=== PATIENT | male | born 1995 | race Two or more races ===

== ENCOUNTER 2017-02-20 10:00 | Emergency (ER) | payer SELFPAY ==
[~2017-02-20] VITALS: Ht 190.5 cm; Wt 115.7 kg
[~2017-02-20 10:00] MED LIST: ALBUTEROL SULF8.5 GM INH; AZITHROMYCIN250 MG ORAL; BENADRYL25 MG ORAL; ERYTHROMYCIN3.5 GM LEFT EYE; FLONASE1 SPRAYS NASAL; MEDROL DOSEPAK4 MG ORAL; NAPROXEN500 M2 ORAL; NKM; PREDNISONE20 MG ORAL; PROAIR HFA8.5 GM INH; PROMETHAZINE-C118 M1 ORAL; ZYRTEC10 MG ORAL
[2017-02-20] MEDS ORDERED: Albuterol ud Inhalation HHN ONE (10:30)
[2017-02-20] MEDS ORDERED: Ipratropium 0.02% Inh Soln 2.5ml UD HHN ONE (10:30)
[2017-02-20] MEDS ORDERED: PredniSONE 20mg tab ORAL ONE (10:30)
[2017-02-20] MEDS ORDERED: ALBUTEROL SULF8.5 GM INH (11:30)
[2017-02-20] MEDS ORDERED: PREDNISONE20 MG ORAL (11:30)
[2017-02-20] MEDS ORDERED: PROMETHAZINE-C118 M1 ORAL (11:30)
[2017-02-20 11:41] VITALS: BP 120/80
--- NOTE | 2017-02-21 13:54 | Emergency Room Report ---
History of Present Illness General Chief Complaint: Flu Like Symptoms Source: Patient Present Illness HPI 21-year-old male presents to ED complaining of cough x10 days. Cough is productive with greenish sputum. Patient notes wheezing. Documents history of asthma. States he did not have an inhaler at this time. Denies any fevers or chills. Denies smoking. Denies recent travel. No other aggravating or relieving factors. Denies any other associated symptoms Allergies: Coded Allergies: No Known Allergies (Unverified , 02/21/14) Patient History Past Medical History: asthma Past Surgical History: none Pertinent Family History: none Social History: Denies: alcohol use, drug use, smoking Immunizations: UTD Reviewed Nursing Documentation: PMH: Agreed, PSxH: Agreed Nursing Documentation-PMH Hx Cardiac Problems: No - seasonal allergies Hx Asthma: Yes Review of Systems All Other Systems: negative except mentioned in HPI Physical Exam Vital Signs Date Time Temp Pulse Resp B/P Pulse Ox O2 Delivery O2 Flow Rate FiO2 02/20/17 10:09 97.2 96 20 136/75 100 Room Air 02/20/17 10:15 96 Sp02 EP Interpretation: reviewed, normal General Appearance: no apparent distress, alert, GCS 15, non-toxic Head: normocephalic Eyes: bilateral eye PERRL, bilateral eye normal inspection ENT: normal ENT inspection Neck: normal inspection Respiratory: chest non-tender, normal breath sounds, speaking full sentences, wheezing Cardiovascular #1: regular rate, rhythm, no edema Gastrointestinal: normal inspection Rectal: deferred Genitourinary: no CVA tenderness Musculoskeletal: normal inspection Neurologic: alert, oriented x3, responsive, motor strength/tone normal, sensory intact, speech normal Psychiatric: normal inspection Skin: normal color, no rash, warm/dry, well hydrated Lymphatic: normal inspection Medical Decision Making Diagnostic Impression: Primary Impression: Bronchitis ER Course Hospital Course 21-year-old male presents to ED complaining of cough, wheezing Differential diagnoses include: URI, bronchitis, asthma/COPD, pneumonia Clinical course Patient placed on stretcher. After initial history and physical I ordered prednisone and nebulizer treatment. Upon reassessment patient states cough and symptoms have improved. Findings consistent with bronchitis. Diagnosis - bronchitis Stable and discharged home with prescriptions for Rx prednisone, cough syrup, albuterol. Instructed to followup with PMD. Return to ED if symptoms recur or worsen Last Vital Signs Date Time Temp Pulse Resp B/P Pulse Ox O2 Delivery O2 Flow Rate FiO2 02/20/17 11:41 97.5 91 16 120/80 96 Room Air 21 Status: improved Disposition: HOME, SELF-CARE Condition: Stable Scripts Codeine/Promethazine Hcl* (PROMETHAZINE-CODEINE SYRUP*) 118 Ml Syrup 5 ML ORAL Q4H Y for For Cough for 7 Days, ML 0 Refills Prov: CRISTY BLACKBURN M.D. 02/20/17 Prednisone* (PREDNISONE*) 20 Mg Tablet 40 MG ORAL DAILY, #10 TAB Prov: CIRSTY BLACKBURN M.D. 02/20/17 Albuterol Sulfate* (ALBUTEROL SULFATE MDI*) 8.5 Gm Hfa.aer.ad 2 PUFF INH Q4H Y for cough/wheezing, #1 EA 0 Refills Prov: CRISTY BLACKBURN M.D. 02/20/17 Referrals: NOT CHOSEN [facility]/,REFERRING (PCP) Patient Instructions: Acute Bronchitis, [id number] CRISTY BLACKBURN M.D. Feb 21, 2017 13:54
== END 2017-02-20 11:43 | disposition home or self-care (01) ==
LOC: EMR 10:40
DX: J45.909 Unspecified asthma, uncomplicated (principal)
CPT/HCPCS: 94640; 94664; 99284

== ENCOUNTER 2018-01-21 01:35 | Emergency (ER) | payer SELFPAY ==
[~2018-01-21] VITALS: Ht 190.5 cm; Wt 126.6 kg
[2018-01-21] MEDS: Albuterol ud Inhalation HHN SCH ×3 (02:00→02:18)
[2018-01-21 02:07] VITALS: BP 112/65
[2018-01-21] MEDS: Ipratropium 0.02% Inh Soln 2.5ml UD HHN SCH ×2 (02:15→02:16)
[2018-01-21] MEDS: Levalbuterol Inh UD 1.25mg/0.5ml HHN SCH ×3 (02:15→04:33)
--- NOTE | 2018-01-21 04:11 | Emergency Room Report ---
History of Present Illness General Chief Complaint: Upper Respiratory Illness Source: Patient Present Illness HPI 22-year-old male presents ED for evaluation. Patient presenting with cough, body aches and fever 3 days. Cough is productive yellowish phlegm. Temp in triage is 100.8. Notes body aches and chills. Pain is a 8 out of 10, dull, nonradiating. Denies sore throat or ear ache. Denies sick contacts or recent travel. No other aggravating relieving factors. Denies any other associated symptoms Allergies: Coded Allergies: No Known Allergies (Unverified , 02/21/14) Patient History Past Medical History: asthma Past Surgical History: none Pertinent Family History: none Social History: Denies: smoking, alcohol use, drug use Immunizations: UTD Reviewed Nursing Documentation: PMH: Agreed, PSxH: Agreed Nursing Documentation-PMH Hx Asthma: Yes Review of Systems All Other Systems: negative except mentioned in HPI Physical Exam Vital Signs Date Time Temp Pulse Resp B/P (MAP) Pulse Ox O2 Delivery O2 Flow Rate FiO2 01/21/18 01:41 100.8 135 20 124/68 90 Room Air 100.8 Sp02 EP Interpretation: reviewed, normal General Appearance: no apparent distress, alert, GCS 15, non-toxic Head: normocephalic, atraumatic Eyes: bilateral eye normal inspection, bilateral eye PERRL ENT: hearing grossly normal, normal pharynx, no angioedema, normal voice Neck: full range of motion, supple/symm/no masses Respiratory: chest non-tender, normal breath sounds, speaking full sentences, wheezing Cardiovascular #1: regular rate, rhythm, no edema Cardiovascular #2: 2+ carotid (R), 2+ carotid (L), 2+ radial (R), 2+ radial (L) , 2+ dorsalis pedis (R), 2+ dorsalis pedis (L) Gastrointestinal: normal bowel sounds, non tender, soft, non-distended, no guarding, no rebound Rectal: deferred Genitourinary: normal inspection, no CVA tenderness Musculoskeletal: back normal, gait/station normal, normal range of motion, non- tender Neurologic: alert, oriented x3, responsive, motor strength/tone normal, sensory intact, speech normal Psychiatric: judgement/insight normal, memory normal, mood/affect normal, no suicidal/homicidal ideation Reflexes: 3+ bicep (R), 3+ bicep (L), 3+ tricep (R), 3+ tricep (L), 3+ knee (R) , 3+ knee (L) Skin: normal color, no rash, warm/dry, well hydrated Lymphatic: no adenopathy Medical Decision Making Diagnostic Impression: Primary Impression: Bronchitis Additional Impression: Influenza B ER Course Hospital Course 22-year-old male presents to ED complaining of cough, bodyaches, fever Differential diagnoses include: URI, bronchitis, asthma/COPD, pneumonia Clinical course Patient placed on stretcher. After initial history and physical I ordered prednisone, motrin and nebulizer treatment. After multiple breathing treatments patient's breathing has improved however is tachycardic. Patient given IV fluids. Influenza swab collected and positive for influenza B Discussed findings with patient. Tachycardia resolving after IV fluids. Patient will be discharged on Tamiflu. Supportive therapy Diagnosis - bronchitis, influenza B Stable and discharged home with prescriptions for Rx motrin, prednisone, tamiflu , flovent. Instructed to followup with PMD. Return to ED if symptoms recur or worsen Microbiology Date/Time Source Procedure Growth Status 01/21/18 02:15 Nasal Nares Influenza Types A,B Antigen (THAD) - Final Complete Last Vital Signs Date Time Temp Pulse Resp B/P (MAP) Pulse Ox O2 Delivery O2 Flow Rate FiO2 01/21/18 02:36 136 18 Room Air 01/21/18 02:10 93 01/21/18 02:07 100.8 112/65 100.8 Status: improved Disposition: HOME, SELF-CARE Condition: Stable Scripts Oseltamivir Phosphate (Tamiflu) 75 Mg Capsule 75 MG ORAL TWICE A DAY for 5 Days, CAP Prov: CRISTY BLACKBURN M.D. 01/21/18 Fluticasone Propionate (Flovent Hfa) 12 Gm Aer.w.adap 2 PUFFS INH TWICE A DAY, #1 EA 0 Refills Prov: CRISTY BLACKBURN M.D. 01/21/18 Prednisone* (PREDNISONE*) 20 Mg Tablet 40 MG ORAL DAILY, #10 TAB Prov: CRISTY BLACKBURN M.D. 01/21/18 Albuterol Sulfate* (ALBUTEROL SULFATE MDI*) 8.5 Gm Hfa.aer.ad 2 PUFF INH Q6H, #1 EA 0 Refills Prov: CRISTY BLACKBURN M.D. 01/21/18 Referrals: NOT CHOSEN [facility]/,REFERRING (PCP) CRISTY BLACKBURN M.D. Jan 21, 2018 04:11
[2018-01-21] MEDS ORDERED: Oseltamivir 75mg cap ORAL ONE (04:30)
[2018-01-21] MEDS ORDERED: Levalbuterol Inh UD 1.25mg/0.5ml HHN ONE (04:30)
[2018-01-21] MEDS ORDERED: Ipratropium 0.02% Inh Soln 2.5ml UD HHN ONE (04:30)
[2018-01-21 05:27] VITALS: BP 112/65
[2018-01-21] MEDS ORDERED: ALBUTEROL SULF8.5 GM INH (05:29)
[2018-01-21] MEDS ORDERED: TAMIFLU75 MG ORAL (05:29)
[2018-01-21] MEDS ORDERED: FLOVENT2 PUFF2 INH (05:29)
[2018-01-21] MEDS ORDERED: PREDNISONE20 MG ORAL (05:29)
== END 2018-01-21 05:40 | disposition home or self-care (01) ==
LOC: EDBD 01:35 → EMR 01:59
DX: J45.909 Unspecified asthma, uncomplicated (principal); J10.1 Influenza due to other identified influenza virus with other respiratory manifestations
CPT/HCPCS: 86710; 94640; 94664; 96374; 96375; 99284; J7512; J7644

== ENCOUNTER 2018-06-30 23:46 | Emergency (ER) | payer OTHER ==
[~2018-06-30] VITALS: Ht 190.5 cm; Wt 129.3 kg
[~2018-06-30 23:46] MED LIST changes: +FLOVENT2 PUFF2 INH; +TAMIFLU75 MG ORAL
[2018-07-01 00:20] VITALS: BP 127/77
[2018-07-01] MEDS ORDERED: ALBUTEROL SULF8.5 GM INH (00:38)
[2018-07-01] MEDS ORDERED: PREDNISONE20 MG ORAL (00:38)
[2018-07-01] MEDS ORDERED: PROMETHAZINE-C118 M1 ORAL (00:38)
[2018-07-01 00:44] VITALS: BP 127/77
--- NOTE | 2018-07-01 01:51 | Emergency Room Report ---
History of Present Illness General Chief Complaint: Upper Respiratory Illness Source: Patient Present Illness HPI 22-year-old male presents ED for evaluation. Patient complaint cough 2 weeks. Productive with yellowish phlegm. Notes history of asthma. States he ran out of his inhaler. Denies fevers or chills. Denies chest pain. denies sick contacts or recent travel. No other aggravating relieving factors. Denies any other associated symptoms Allergies: Coded Allergies: No Known Allergies (Unverified , 02/21/14) Patient History Past Medical History: none Past Surgical History: none Pertinent Family History: none Social History: Denies: smoking, alcohol use, drug use Immunizations: UTD Reviewed Nursing Documentation: PMH: Agreed; PSxH: Agreed Review of Systems All Other Systems: negative except mentioned in HPI Physical Exam Vital Signs Date Time Temp Pulse Resp B/P (MAP) Pulse Ox O2 Delivery O2 Flow Rate FiO2 07/01/18 00:05 98.0 84 18 127/77 96 Room Air 98.1 Sp02 EP Interpretation: reviewed, normal General Appearance: no apparent distress, alert, GCS 15, non-toxic, obese Head: normocephalic, atraumatic Eyes: bilateral eye normal inspection, bilateral eye PERRL ENT: hearing grossly normal, normal pharynx, no angioedema, normal voice Neck: full range of motion, supple/symm/no masses Respiratory: chest non-tender, lungs clear, normal breath sounds, speaking full sentences Cardiovascular #1: regular rate, rhythm, no edema Cardiovascular #2: 2+ carotid (R), 2+ carotid (L), 2+ radial (R), 2+ radial (L) , 2+ dorsalis pedis (R), 2+ dorsalis pedis (L) Gastrointestinal: normal bowel sounds, non tender, soft, non-distended, no guarding, no rebound Rectal: deferred Genitourinary: normal inspection, no CVA tenderness Musculoskeletal: back normal, gait/station normal, normal range of motion, non- tender Neurologic: alert, oriented x3, responsive, motor strength/tone normal, sensory intact, speech normal Psychiatric: judgement/insight normal, memory normal, mood/affect normal, no suicidal/homicidal ideation Reflexes: 3+ bicep (R), 3+ bicep (L), 3+ tricep (R), 3+ tricep (L), 3+ knee (R) , 3+ knee (L) Skin: normal color, no rash, warm/dry, well hydrated Lymphatic: no adenopathy Medical Decision Making Diagnostic Impression: Primary Impression: Bronchitis ER Course Hospital Course 22-year-old male presents to ED complaining of cough x 2 weeks Differential diagnoses include: URI, pharyngitis, otitis media, asthma Clinical course Patient placed on stretcher. After initial history, physical exam reveals an obese male in no acute distress. Bilateral TM unremarkable. No pharyngeal erythema. No tonsillar exudates. No lymphadenopathy. lungs clear. abdomen soft. Clinical findings consistent with bronchitis. we will discharge with inhaler, prednisone, cough medicine. close followup with PMD Diagnosis - bronchitis Stable and discharged home with Rx prednisone, albuterol, promethazine/codeine. Instructed to followup with PMD. Return to ED if symptoms recur or worsen Last Vital Signs Date Time Temp Pulse Resp B/P (MAP) Pulse Ox O2 Delivery O2 Flow Rate FiO2 07/01/18 00:44 98.1 18 127/77 96 Room Air 98.1 07/01/18 00:20 84 Status: improved Disposition: HOME, SELF-CARE Condition: Stable Scripts Codeine/Promethazine Hcl* (PROMETHAZINE-CODEINE SYRUP*) 118 Ml Syrup 5 ML ORAL Q6H PRN for For Cough, #118 ML 0 Refills Prov: Loi Zamora MD 07/01/18 Prednisone* (PREDNISONE*) 20 Mg Tablet 40 MG ORAL DAILY, #10 TAB Prov: Loi Zamora MD 07/01/18 Albuterol Sulfate* (ALBUTEROL SULFATE MDI*) 8.5 Gm Hfa.aer.ad 2 PUFF INH Q4H PRN for cough/wheezing, #1 EA 0 Refills Prov: Loi Zamora MD 07/01/18 Referrals: VIOLETTE SAUER,REFERRING (PCP) Patient Instructions: Acute Bronchitis, [id number] Loi Zamora MD Jul 01, 2018 01:51
== END 2018-07-01 00:45 | disposition home or self-care (01) ==
LOC: EMR 07-01 00:32
DX: J40 Bronchitis, not specified as acute or chronic (principal)
CPT/HCPCS: 99283

== ENCOUNTER 2018-07-23 23:25 | Emergency (ER) | payer OTHER ==
[~2018-07-23] VITALS: Ht 182.9 cm; Wt 127.0 kg
[2018-07-23] MEDS ORDERED: PREDNISONE20 MG ORAL (23:37)
[2018-07-23] MEDS ORDERED: ALBUTEROL SULF8.5 GM INH (23:37)
[2018-07-23 23:40] VITALS: BP 140/85
[2018-07-23] MEDS ORDERED: Albuterol/Ipratropium 3ml neb HHN ONE (23:45)
[2018-07-23 23:57] VITALS: BP 140/85
--- NOTE | 2018-07-24 07:09 | Emergency Room Report ---
History of Present Illness General Chief Complaint: Dyspnea/Respdistress Source: Patient, Medical Record Present Illness HPI The patient is 22-year-old male presented after increased difficulty breathing and nonproductive cough. Patient prior history of asthma but had been using his inhalers. He had not been recently hospitalized. The patient had run out of his medications. He denies any fever. No Leg pain or swelling. Allergies: Coded Allergies: No Known Allergies (Unverified , 02/21/14) Patient History Past Medical History: see triage record, asthma Reviewed Nursing Documentation: PMH: Agreed; PSxH: Agreed Nursing Documentation-PMH Past Medical History: No History, Except For Review of Systems All Other Systems: negative except mentioned in HPI Physical Exam Vital Signs Date Time Temp Pulse Resp B/P (MAP) Pulse Ox O2 Delivery O2 Flow Rate FiO2 07/23/18 23:28 98.6 94 21 140/85 95 Room Air 98.6 07/23/18 23:42 21 General Appearance: well appearing, no apparent distress, alert, GCS 15, obese Head: normocephalic, atraumatic ENT: hearing grossly normal, normal voice Neck: full range of motion, supple Respiratory: no respiratory distress, speaking full sentences, wheezing Cardiovascular #1: normal inspection, normal peripheral pulses, regular rate, rhythm, no edema Gastrointestinal: normal inspection Musculoskeletal: normal inspection, back normal, no calf tenderness Neurologic: normal inspection, alert, oriented x3, responsive, normal gait Psychiatric: mood/affect normal Skin: normal inspection, no rash Medical Decision Making Diagnostic Impression: Primary Impression: Asthma exacerbation ER Course patient presented for shortness of breath. Differential included but was not limited to anemia, pneumonia, pneumothorax, myocardial infarction, pericardial effusion, congestive heart failure, acidosis. Patient is given nebulized albuterol with improvement. Patient was given steroids. Repeat lung exam showed improved breath sounds. The patient is advised to follow up with primary care doctor in 1-2 days. Patient is advised to return if any worsening condition or if any changes in status that are concerning. This report is dictated with [employer] crusher screen repairer software which may occasionally lead to discrepancies related to use of this software. Last Vital Signs Date Time Temp Pulse Resp B/P (MAP) Pulse Ox O2 Delivery O2 Flow Rate FiO2 07/23/18 23:57 98.6 94 18 140/85 98 Room Air 21 98.6 Status: improved Disposition: HOME, SELF-CARE Condition: Stable Scripts Prednisone* (PREDNISONE*) 20 Mg Tablet 40 MG ORAL DAILY, #10 TAB Prov: Gurinder Hughes MD 07/23/18 Albuterol Sulfate* (ALBUTEROL SULFATE MDI*) 8.5 Gm Hfa.aer.ad 2 PUFF INH Q4H PRN for cough/wheezing, #1 EA 0 Refills Prov: Gurinder Hughes MD 07/23/18 Referrals: VIOLETTE SAUER,REFERRING (PCP) Patient Instructions: Asthma, Adult Gurinder Hughes MD Jul 24, 2018 07:09
== END 2018-07-23 23:57 | disposition home or self-care (01) ==
LOC: EMR 23:50
DX: J45.901 Unspecified asthma with (acute) exacerbation (principal)
CPT/HCPCS: 94640; 94664; 99284; J7512; J7620

== ENCOUNTER 2018-08-19 00:40 | Emergency (ER) | payer OTHER ==
[~2018-08-19] VITALS: Ht 190.5 cm; Wt 131.5 kg
--- NOTE | 2018-08-19 01:12 | Emergency Room Report ---
History of Present Illness General Chief Complaint: Upper Respiratory Illness Source: Patient Present Illness HPI Patient presents with cough since Friday. He is coughing up quite a bit of phlegm. Denies any fevers or chills. He also has a slight sore throat. He also hears himself wheezing. He ran out of his inhaler. He's used steroids in the past. This is not the worst attack that he's had. He doesn't like the way steroids make him feel. The phlegm makes him almost vomit. No headache, rash, diarrhea or actual vomiting. H/O asthma Allergies: Coded Allergies: No Known Allergies (Unverified , 02/21/14) Patient History Past Medical History: see triage record Social History: Denies: smoking Social History Narrative with girlfriend Reviewed Nursing Documentation: PMH: Agreed; PSxH: Agreed Review of Systems All Other Systems: negative except mentioned in HPI Physical Exam Vital Signs Date Time Temp Pulse Resp B/P (MAP) Pulse Ox O2 Delivery O2 Flow Rate FiO2 08/19/18 00:59 98.1 78 18 127/82 96 Room Air 98.1 Sp02 EP Interpretation: reviewed, normal General Appearance: well appearing, no apparent distress, GCS 15 Head: normocephalic, atraumatic Eyes: bilateral eye normal inspection, bilateral eye PERRL ENT: hearing grossly normal, normal voice, pharyngeal erythema Neck: full range of motion, supple Respiratory: no respiratory distress, speaking full sentences, wheezing, expiration Cardiovascular #1: regular rate, rhythm Cardiovascular #2: 2+ radial (R) Gastrointestinal: normal inspection, overweight Genitourinary: no CVA tenderness Musculoskeletal: back normal, digits/nails normal, gait/station normal, normal range of motion Neurologic: alert, oriented x3, grossly normal Psychiatric: mood/affect normal Skin: no rash, other - old scars forearms (more like animal scratches) Medical Decision Making Diagnostic Impression: Primary Impression: Asthmatic bronchitis Qualified Codes: J45.21 - Mild intermittent asthma with (acute) exacerbation ER Course Patient presents with productive cough and wheezing. Differential includes pneumonia, asthmatic bronchitis, asthma exacerbation amongst others. Patient is afebrile right now and oxygen saturation is good. Patient can benefit from a breathing treatment. Antibiotics are not indicated at the moment. Also clinically, imaging not needed. Improved with breathing treatments. Patient stable for outpatient observation and treatment. Last Vital Signs Date Time Temp Pulse Resp B/P (MAP) Pulse Ox O2 Delivery O2 Flow Rate FiO2 08/19/18 01:42 98.1 75 18 123/84 98 Room Air 21 98.1 Status: improved Disposition: HOME, SELF-CARE Condition: Improved Scripts Chlorpheniramine Maleate (CHLOR-TRIMETON) 4 Mg Tablet 4 MG PO Q6HR PRN for congestion, #10 TAB Prov: Zac Rivas M.D. 08/19/18 Dextromethorphan Hb/Doxylamine (ROBITUSSIN NIGHTTIME COUGH DM) 237 Ml Liquid 5 ML PO Q6HR for cough, #90 ML Prov: Zac Rivas M.D. 08/19/18 Beclomethasone Dipropionate 40MCG Oral Inh (QVAR 40*) 7.3 Gm Aer.w.adap 2 PUFFS INH TWICE A DAY, #1 GM 0 Refills Prov: Zac Rivas M.D. 08/19/18 Albuterol Sulfate* (ALBUTEROL SULFATE MDI*) 8.5 Gm Hfa.aer.ad 2 PUFF INH Q6H, #1 EA 1 Refill Prov: Zac Rivas M.D. 08/19/18 Zac Rivas M.D. Aug 19, 2018 01:12
[2018-08-19 01:13] VITALS: BP 125/81
[2018-08-19] MEDS ORDERED: Albuterol/Ipratropium 3ml neb HHN ONE (01:15)
[2018-08-19] MEDS ORDERED: ALBUTEROL SULF8.5 GM INH (01:35)
[2018-08-19] MEDS ORDERED: QVAR7.3 GM INH (01:35)
[2018-08-19] MEDS ORDERED: ROBITUSSIN NIG237 ML PO (01:35)
[2018-08-19] MEDS ORDERED: CHLOR-TRIMETON4 MG PO (01:35)
[2018-08-19 01:42] VITALS: BP 123/84
== END 2018-08-19 01:45 | disposition home or self-care (01) ==
LOC: EMR 01:15
DX: J45.909 Unspecified asthma, uncomplicated (principal)
CPT/HCPCS: 94640; 94664; 99284; J7620

== ENCOUNTER 2019-01-27 14:00 | Emergency (ER) | payer BC, OTHER ==
[~2019-01-27] VITALS: Ht 190.5 cm; Wt 130.2 kg
[~2019-01-27 14:00] MED LIST changes: +CHLOR-TRIMETON4 MG PO; +QVAR7.3 GM INH; +ROBITUSSIN NIG237 ML PO
[2019-01-27 14:20] VITALS: BP 118/72
[2019-01-27] MEDS ORDERED: ALBUTEROL SULF8.5 GM INH (14:20)
[2019-01-27 14:25] VITALS: BP 118/72
--- NOTE | 2019-01-27 14:41 | Emergency Room Report ---
History of Present Illness General Chief Complaint: Medication Refill Source: Patient Present Illness HPI 23-year-old male presents ED for evaluation. Patient is here for refill of his inhaler. Notes history of asthma. States that he ran out a few weeks ago. Denies any cough or wheezing. States he feels fine this time. No other aggravating relieving factors. Denies any other associated symptoms Allergies: Coded Allergies: No Known Allergies (Unverified , 02/21/14) Patient History Past Medical History: asthma Past Surgical History: none Pertinent Family History: none Social History: Denies: smoking, alcohol use, drug use Immunizations: UTD Reviewed Nursing Documentation: PMH: Agreed; PSxH: Agreed Review of Systems All Other Systems: negative except mentioned in HPI Physical Exam Vital Signs Date Time Temp Pulse Resp B/P (MAP) Pulse Ox O2 Delivery O2 Flow Rate FiO2 01/27/19 14:11 97.9 77 19 118/72 95 Room Air Sp02 EP Interpretation: reviewed, normal General Appearance: no apparent distress, alert, GCS 15, non-toxic Head: normocephalic, atraumatic Eyes: bilateral eye normal inspection, bilateral eye PERRL ENT: hearing grossly normal, normal pharynx, no angioedema, normal voice Neck: full range of motion, supple/symm/no masses Respiratory: chest non-tender, lungs clear, normal breath sounds, speaking full sentences Cardiovascular #1: regular rate, rhythm, no edema Cardiovascular #2: 2+ carotid (R), 2+ carotid (L), 2+ radial (R), 2+ radial (L) , 2+ dorsalis pedis (R), 2+ dorsalis pedis (L) Gastrointestinal: normal bowel sounds, non tender, soft, non-distended, no guarding, no rebound Rectal: deferred Genitourinary: normal inspection, no CVA tenderness Musculoskeletal: back normal, gait/station normal, normal range of motion, non- tender Neurologic: alert, oriented x3, responsive, motor strength/tone normal, sensory intact, speech normal Psychiatric: judgement/insight normal, memory normal, mood/affect normal, no suicidal/homicidal ideation Reflexes: 3+ bicep (R), 3+ bicep (L), 3+ tricep (R), 3+ tricep (L), 3+ knee (R) , 3+ knee (L) Skin: normal color, no rash, warm/dry, well hydrated Lymphatic: no adenopathy Medical Decision Making Diagnostic Impression: Primary Impression: Encounter for medication refill ER Course 23-year-old male presents to ED refill of his inhaler. h/o asthma hospital course: After initial history and exam reveals male in no acute distress. Lungs clear. No signs of distress. Vital stable. We will provide refill of inhaler here Patient states he does not have a PMD. We'll provide referrals. Safe for discharge with close outpatient follow-up Diagnosis-encounter for medication refill Stable and discharged to home with prescription for asthma. Followup with PMD. Return to ED if symptoms recur or worsen Last Vital Signs Date Time Temp Pulse Resp B/P (MAP) Pulse Ox O2 Delivery O2 Flow Rate FiO2 01/27/19 14:25 97.9 19 118/72 95 Room Air 01/27/19 14:11 77 Status: improved Disposition: HOME, SELF-CARE Condition: Stable Scripts Albuterol Sulfate* (ALBUTEROL SULFATE MDI*) 8.5 Gm Hfa.aer.ad 2 PUFF INH Q6H, #1 EA 0 Refills Prov: Loi Zamora MD 01/27/19 Referrals: [facility] Patient Instructions: Medicine Refill at the Emergency Department Loi Zamora MD Jan 27, 2019 14:41
== END 2019-01-27 14:25 | disposition home or self-care (01) ==
LOC: EMR 14:18
DX: Z76.0 Encounter for issue of repeat prescription (principal); J45.909 Unspecified asthma, uncomplicated
CPT/HCPCS: 99282

== ENCOUNTER 2019-04-30 16:58 | Emergency (ER) | payer BC, OTHER ==
[~2019-04-30] VITALS: Ht 190.5 cm; Wt 127.0 kg
[2019-04-30 17:04] VITALS: BP 146/101
--- NOTE | 2019-04-30 17:10 | NUR ---
ED Nurse Note: Patient presents to ER due to worsened asthma due to 'dust at work' and rash over BUE x 1 week. Patient works at moving company. Able to speak full sentence. Patient states he get rash (multiple lesion, dry round patchy) when he feels hot and sweaty. Reports no fever or chills. Placed patient in chair. No facial grimacing or guarding noted.
[2019-04-30] MEDS ORDERED: Albuterol ud Inhalation HHN ONE (17:30)
--- NOTE | 2019-04-30 17:44 | Emergency Room Report ---
History of Present Illness General Chief Complaint: Asthma Source: Patient Present Illness HPI 23 YO Male presents to the ED c/o cough and wheezing x 2 days, Pt. has a hx of asthma, and inhaler treatments at home were not helping, then he ran out of his inhaler. Denies sore throat, ear pain, high fevers, lethargy, neck pain/ stiffness, irritability, photophobia dehydration, N/V/D. Denies Cp, Palpitations , LOC, AMS, seizures, paresthesias, or changes in Hearing or vision, no Sudden severe SOW. Denies hx of smoking, asthma or COPD. Allergies: Coded Allergies: No Known Allergies (Unverified , 02/21/14) Patient History Past Medical History: see triage record, asthma Past Surgical History: none Pertinent Family History: none Reviewed Nursing Documentation: PMH: Agreed; PSxH: Agreed Nursing Documentation-PMH Past Medical History: No History, Except For Hx Asthma: Yes - Bronchitis Review of Systems All Other Systems: negative except mentioned in HPI Physical Exam Vital Signs Date Time Temp Pulse Resp B/P (MAP) Pulse Ox O2 Delivery O2 Flow Rate FiO2 04/30/19 17:04 97.0 16 146/101 96 Room Air 04/30/19 17:04 81 Sp02 EP Interpretation: reviewed, normal General Appearance: no apparent distress, alert, GCS 15, non-toxic Head: normocephalic, atraumatic Eyes: bilateral eye normal inspection, bilateral eye PERRL ENT: hearing grossly normal, normal pharynx, no angioedema, normal voice, other - no stridor Neck: full range of motion Respiratory: chest non-tender, lungs clear, normal breath sounds, no respiratory distress, no accessory muscle use, speaking full sentences, wheezing Cardiovascular #1: regular rate, rhythm Musculoskeletal: back normal, gait/station normal, normal range of motion, non- tender Neurologic: alert, oriented x3, responsive, motor strength/tone normal, sensory intact, speech normal, grossly normal Psychiatric: judgement/insight normal Skin: rash - there are three erythematous plaques with dry scale, two on the right forearm and on on the left medial elbow area. no urticaria, no blisters or vessicles. Lymphatic: no adenopathy Medical Decision Making PA Attestation Dr. Galindo is my supervising Physician whom patient management has been discussed with. Diagnostic Impression: Primary Impression: Asthma exacerbation Qualified Codes: J45.901 - Unspecified asthma with (acute) exacerbation Additional Impression: Rash and nonspecific skin eruption ER Course Pt. presents to the ED c/o cough and wheezing x 2 days, Pt. has a hx of asthma, and inhaler treatments at home were not helping, then he ran out of his inhaler. Denies sore throat, ear pain, high fevers, lethargy, neck pain/ stiffness, irritability, photophobia dehydration, N/V/D. Denies Cp, Palpitations , LOC, AMS, seizures, paresthesias, or changes in Hearing or vision, no Sudden severe SOW. Denies hx of smoking, asthma or COPD. Ddx considered but are not limited to asthma exacerbation, CHF, URI, pneumonia, PE, strep pharyngitis, meningitis. Vital signs: Pt. is afebrile, VS are WNL H&PE are most consistent with URI, asthma exacerbation ORDERS: none required at this time, the diagnosis is clinical ED INTERVENTIONS: Albuterol nebulized treatment. - re-examination post nebulized treatment lungs are CTA bilaterally. DISCHARGE: At this time pt. is stable for d/c to home. Will provide printed patient care instructions, and any necessary prescriptions. Care plan and follow up instructions have been discussed with the patient prior to discharge. Last Vital Signs Date Time Temp Pulse Resp B/P (MAP) Pulse Ox O2 Delivery O2 Flow Rate FiO2 04/30/19 17:04 97.0 81 16 146/101 (116) 96 Room Air Status: improved Disposition: HOME, SELF-CARE Condition: Stable Scripts Triamcinolone Acet (Triamcinolone Acetonide) 15 Gm Cream..g. 1 APPLIC APPLIC BID, #15 GM Prov: Katlyn Ontiveros 04/30/19 Montelukast Sodium* (SINGULAIR*) 10 Mg Tablet 10 MG ORAL DAILY for 10 Days, #10 TAB Prov: Katlyn Ontiveros 04/30/19 Albuterol Sulfate* (ALBUTEROL SULFATE MDI*) 8.5 Gm Hfa.aer.ad 2 PUFF INH Q4H, #1 INH 0 Refills Prov: Katlyn Ontiveros 04/30/19 Referrals: NOT CHOSEN IPA/MD,REFERRING (PCP) Patient Instructions: Asthma, Adult Additional Instructions: Take medications as directed. Follow up with a Primary Care Provider in 3-5 days, even if your symptoms have resolved. --Please review list of primary care clinics, if you do not already have a primary care provider Return sooner to ED if new symptoms occur, or current symptoms become worse. - Please note that this Emergency Department Report was dictated using [employer] technology software, occasionally this can lead to erroneous entry secondary to interpretation by the dictation equipment. Katlyn Ontiveros Apr 30, 2019 17:44
[2019-04-30] MEDS ORDERED: SINGULAIR10 MG ORAL (17:58)
[2019-04-30] MEDS ORDERED: ALBUTEROL SULF8.5 GM INH (17:58)
[2019-04-30] MEDS ORDERED: KENALOG 0.5% CR15 GM APPLIC (17:59)
[2019-04-30 18:45] VITALS: BP 138/99
--- NOTE | 2019-04-30 18:46 | NUR ---
ER DISCHARGE NOTE: Patient is cleared to be discharged per ERMD, pt is aox4, on room air, with stable vital signs. pt was given dc and prescription instructions, pt was able to verbalize understanding, pt id band removed. pt is able to ambulate with steady gait. pt took all belongings.
== END 2019-04-30 18:46 | disposition home or self-care (01) ==
LOC: EMR 17:30
DX: J45.901 Unspecified asthma with (acute) exacerbation (principal); R21 Rash and other nonspecific skin eruption
CPT/HCPCS: 94640; 94664; 99284